=== PATIENT | male | born 1980 | race Caucasian/White ===

== ENCOUNTER 2018-04-24 23:39 | Emergency (ER) | payer MEDICAID ==
[~2018-04-24] VITALS: Ht 172.7 cm; Wt 103.6 kg
--- NOTE | 2018-04-24 23:48 | NUR ---
PROVIDER AT BEDSIDE TO EVAL.
[2018-04-24] MEDS ORDERED: FAMOTIDINE 20 MG TABLET ONE (23:55)
[2018-04-24] MEDS ORDERED: hydrOXyzine 50MG TABLET ONE (23:55)
[2018-04-24] MEDS: FAMOTIDINE 20 MG TABLET PO ONE ×2 (23:57→23:59)
[2018-04-25] MEDS ORDERED: hydrOXyzine 50MG TABLET PO ONE
--- NOTE | 2018-04-25 00:40 | NUR ---
PT REFUSING LABS--STATES HE HAS "HOSPITAL ANXIETY" AND NEEDS ATIVAN FOR HIS ANXIETY. LABTECH AT BEDSIDE AND AWARE PT REFUSING AT THIS TIME. PT THEN TO US VIA [facility]. AGUILAR AND DR IBRAHIM AWARE OF PT'S REQUEST FOR MEDS BEFORE LABS BEING DRAWN.
--- NOTE | 2018-04-25 00:56 | NUR ---
REPORT TO HERNANDO REECE.
--- NOTE | 2018-04-25 01:14 | NUR ---
PT BACK FROM US. PA TO TALK TO PT. PT REQUESTING FOOD. WILL CHECK WITH ERP.
--- NOTE | 2018-04-25 01:17 | NUR ---
PA AT BEDSIDE.
[2018-04-25] MEDS ORDERED: LORazepam 1MG TABLET ONE (01:21)
[2018-04-25] MEDS ORDERED: LORazepam 1MG TABLET PO ONE (01:30)
--- NOTE | 2018-04-25 01:32 | NUR ---
PT MEDICATED FOR ANXIETY. LAB AT BEDSIDE
[2018-04-25 01:44] LABS: BASOPHILS # (AUTO) 0.01 x10^3/uL (0-0.1); BASOPHILS % (AUTO) 0 % (0-1); EOSINOPHILS # (AUTO) 0.56 x10^3/uL (0-0.4); EOSINOPHILS % (AUTO) 14 % (1-7); LYMPHOCYTES # (AUTO) 0.38 x10^3/uL (1-3.4); LYMPHOCYTES % (AUTO) 10 % (22-44); MD NO; MEAN CORPUSCULAR HGB CONC 33.9 g/dL (33.2-36.2); MEAN CORPUSCULAR VOLUME 82.7 fL (81-97); MEAN PLATELET VOLUME 7.8 fL (7.4-10.4); MONOCYTES % (AUTO) 5 % (2-9); NEUTROPHILS # (AUTO) 2.84 x10^3/uL (1.8-6.8); NEUTROPHILS % (AUTO) 71 % (42-75); PLATELET COUNT 196 x10^3/uL (130-400); RED BLOOD COUNT 4.26 x10^6/uL (4.38-5.82); RED CELL DISTRIBUTION WIDTH 15.5 % (9.4-14.8)
[2018-04-25 01:56] LABS: ALANINE AMINOTRANSFERASE 40 U/L (12-78); ALBUMIN 3.2 g/dL (3.4-5.0); ANION GAP 7 mmol/L (5-15); CALCIUM 8.1 mg/dL (8.5-10.1); CHLORIDE 107 mmol/L (98-107)
[2018-04-25 01:58] LABS: ALKALINE PHOSPHATASE 81 U/L (45-117); BILIRUBIN,TOTAL 0.3 mg/dL (0.2-1.0); CREATININE 1.15 mg/dL (0.7-1.3)
[2018-04-25 02:00] VITALS: BP 149/82
[2018-04-25] MEDS ORDERED: VANCOMYCIN PER PHARMACY MC PRN (02:30)
[2018-04-25] MEDS ORDERED: CEFAZOLIN 1,000 MG IVPush ONE (02:30)
[2018-04-25] MEDS ORDERED: CEFAZOLIN PMX 1GM/50ML 50 ML IV ONE (02:30)
[2018-04-25] MEDS ORDERED: VANCOMYCIN 2,000 MG in SODIUM CHLORIDE 0.9% 500 ML IV ONE (02:30)
--- NOTE | 2018-04-25 02:45 | NUR ---
PIV ATTEMPTED WITH NO SUCCESS. PT GIVEN FOOD. OK PER . ANOTHER RN WILL ATTEMPT PIV FOR ABX.
--- NOTE | 2018-04-25 03:14 | NUR ---
PT REFUSING PIV AND WANTS TO LEAVE. TO TALK TO PT.
[2018-04-25] MEDS ORDERED: ZIPRASIDONE 20 MG INJ IM ONE (03:30)
--- NOTE | 2018-04-25 03:32 | NUR ---
PT LEAVING AMA. PT SIGNED PAPERS AND GIVEN DISCHARGE PAPERS. VSS. PT AMBULATED OUT OF ER WITH A STEADY GAIT.
== END 2018-04-25 03:51 | disposition left against medical advice (07) ==
LOC: ED 04-25 01:18 → EDIP 04-25 02:40 → UNDOADMIN 04-25 02:40
DX: L50.9 Urticaria, unspecified (principal); B86 Scabies; L03.115 Cellulitis of right lower limb; K21.9 Gastro-esophageal reflux disease without esophagitis; M79.89 Other specified soft tissue disorders
CPT/HCPCS: 36415; 80053; 85025; 87040; 93971; 99284; J7512